=== PATIENT | female | born 2000 ===

== ENCOUNTER 2019-03-27 09:42 | Emergency (ER) | payer OTHER ==
[~2019-03-27] VITALS: Ht 170 cm; Wt 45.5 kg
[2019-03-27] MEDS ORDERED: POLYMYXIN B/TRIMETH OS (10:10)
[2019-03-27 10:11] VITALS: BP 122/70; PULSE 80; TEMP 98.1
== END 2019-03-27 10:22 | disposition home or self-care (01) ==
LOC: COL.ER 09:42
DX: H00.014 Hordeolum externum left upper eyelid (principal)

== ENCOUNTER 2019-04-07 18:53 | Emergency (ER) | payer OTHER ==
[~2019-04-07] VITALS: Ht 170 cm; Wt 95.0 kg
[~2019-04-07 18:53] MED LIST: POLYMYXIN B/TRIMETH OS
[2019-04-07 18:57] VITALS: BP 134/68; PULSE 87; TEMP 97.5
== END 2019-04-07 19:17 | disposition home or self-care (01) ==
LOC: COL.ER 18:53
DX: H00.014 Hordeolum externum left upper eyelid (principal)

== ENCOUNTER 2019-04-09 21:03 | Emergency (ER) | payer OTHER ==
[~2019-04-09] VITALS: Ht 170 cm; Wt 95.0 kg
[2019-04-09 21:26] VITALS: TEMP 98.7
[2019-04-10 01:05] VITALS: BP 159/92; PULSE 87
== END 2019-04-10 01:05 | disposition home or self-care (01) ==
LOC: COL.ER 21:03
DX: S63.502A Unspecified sprain of left wrist, initial encounter (principal); W19.XXXA Unspecified fall, initial encounter

== ENCOUNTER 2021-04-14 14:38 | Emergency (ER) | payer OTHER ==
[~2021-04-14] VITALS: Ht 170 cm; Wt 94.0 kg
[2021-04-14] MEDS ORDERED: GLYCERIN S1 SUPP.REC RC (16:50)
[2021-04-14 17:40] VITALS: BP 110/64; PULSE 72; TEMP 98.7
== END 2021-04-14 17:40 | disposition home or self-care (01) ==
LOC: COL.ER 14:38
DX: K59.00 Constipation, unspecified (principal); Z98.84 Bariatric surgery status

== ENCOUNTER 2021-04-16 16:55 | Emergency (ER) | payer OTHER ==
[~2021-04-16] VITALS: Ht 170 cm; Wt 95.0 kg
[~2021-04-16 16:55] MED LIST changes: +GLYCERIN S1 SUPP.REC RC
[2021-04-16 17:29] VITALS: TEMP 98.9
[2021-04-16 20:18] VITALS: BP 119/76; PULSE 72
== END 2021-04-16 20:18 | disposition home or self-care (01) ==
LOC: COL.ER 16:55
DX: K59.00 Constipation, unspecified (principal); E66.9 Obesity, unspecified; F17.200 Nicotine dependence, unspecified, uncomplicated; Z98.84 Bariatric surgery status; Z68.32 Body mass index [BMI] 32.0-32.9, adult

== ENCOUNTER 2021-05-13 12:52 | Emergency (ER) | payer OTHER ==
[~2021-05-13] VITALS: Ht 170 cm; Wt 92.0 kg
[2021-05-13 13:06] VITALS: BP 120/83; TEMP 98.5
[2021-05-13] MEDS ORDERED: FLEXERIL 1010 MG/TAB PO (13:37)
[2021-05-13 14:01] VITALS: PULSE 80
== END 2021-05-13 14:01 | disposition home or self-care (01) ==
LOC: COL.ER 12:52
DX: S39.012A Strain of muscle, fascia and tendon of lower back, initial encounter (principal); Z98.84 Bariatric surgery status; X50.9XXA Other and unspecified overexertion or strenuous movements or postures, initial encounter